=== PATIENT | male | born 2000 | race Caucasian/White ===

== ENCOUNTER 2022-03-07 18:41 | Emergency (ER) | payer BC ==
[~2022-03-07] VITALS: Ht 180.3 cm; Wt 70.3 kg
[2022-03-07 18:47] VITALS: BP 129/84
--- NOTE | 2022-03-07 19:01 | ED Upper Extremity ---
General Chief Complaint: Laceration Stated Complaint: R POINTER FINGER LAC History of Present Illness Date Seen by Provider: Mar 07, 2022 Time Seen by Provider: 18:47 Initial Comments 22-year-old male presents for laceration to his right index finger. He reports using a utility knife and accidentally incising his finger. There is no active bleeding at this time. Patient reports last tetanus vaccine 2 years ago. Onset: just prior to arrival Pain/Injury Location: right 2nd finger Method of Injury: incised Allergies and Home Medications Patient Home Medication List Home Medication List Reviewed: Yes Review of Systems Constitutional: no symptoms reported, see HPI Skin: see HPI, other (Laceration, superficial to right index finger.) Past [place]kl[place]-Y[place]ipe-Shwuqm Hx Patient Social History Tobacco Use?: No Use of E-Cig and/or Vaping dev: Yes E-Cig or Vaping type used: Nicotine Substance use?: No Alcohol Use?: Yes Alcohol Frequency: Once in a while Immunizations Up To Date First/Initial COVID19 Vaccinat: 2020 Second COVID19 Vaccination Mehdi: 2020 Third COVID19 Vaccination Date: NONE 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 oz. kg; BMI Method: General Appearance: WD/WN, no apparent distress Cardiovascular: normal peripheral pulses, regular rate, rhythm, no murmur Respiratory: chest non-tender, lungs clear, normal breath sounds Neurologic/Psychiatric: no motor/sensory deficits, alert, normal mood/affect, oriented x 3 Skin: normal color, warm/dry, other (1.5 cm superficial laceration to the volar surface of the right index finger.) Procedures/Interventions Wound Location: Upper Extremities (Right index finger) Wound Length (cm): 1.5 Wound's Depth, Shape: superficial Wound Explored: clean Irrigated w/ Saline (ccs): 500 Other Closure Supply: Wound Adhesive Sterile Dressing Applied?: No Progress Wound well approximated with skin adhesive. Patient tolerated well. Progress/Results/Core Measures Results/Orders Vital Signs/I&O 03/07/22 18:47 Temp 37.0 Pulse 81 Resp 18 B/P (MAP) 129/84 (99) Pulse Ox 96 O2 Delivery Room Air Departure Impression Primary Impression: Abrasion of right index finger Qualified Codes: S60.410A - Abrasion of right index finger, initial encounter Disposition: HOME, SELF-CARE Condition: Improved Departure-Patient Inst. Decision time for Depature: 18:55 Referrals: ROBBY SYED MD Patient Instructions: Laceration Repair With Glue (DC) Add. Discharge Instructions: Keep wound clean and dry for the next 24 hours. You may shower as normal starting tomorrow morning. Do not peel or remove the adhesive. Do not apply any ointments, creams or lotions to the wound. You may cover it with a Band-Aid when out and about. Follow-up with your primary care or [facility] for signs of infection: Redness, swelling, pain, fever, discolored drainage. Return to the emergency department for new, urgent healthcare needs. All discharge instructions reviewed with patient and/or family. Voiced understanding. VIVIANA CHINO Mar 07, 2022 19:01
== END 2022-03-07 19:05 | disposition home or self-care (01) ==
LOC: ER 18:44
DX: S61.210A Laceration without foreign body of right index finger without damage to nail, initial encounter (principal); F17.290 Nicotine dependence, other tobacco product, uncomplicated; W26.0XXA Contact with knife, initial encounter